=== PATIENT | male | born 1960 | race Caucasian/White ===

== ENCOUNTER → 2017-04-29 | Outpatient (CLI) | payer OTHER ==
[~2017-04-29] MED LIST: GADOBUTROL 10 ML VIAL IVP ONE
== END ==
LOC: FIMAGING 15:48
PROVIDERS: ATTEND Physician Assistant Medical
DX: E71.5 Peroxisomal disorders (principal)
CPT/HCPCS: A9585

== ENCOUNTER 2017-08-27 09:47 | Emergency (ER) | payer OTHER ==
[2017-08-27] MEDS ORDERED: OXYCODONE/APAP 5/325 TAB PO ONE (10:12)
--- NOTE | 2017-08-27 10:13 | EDPHY ---
H & P Time Seen by Provider: 08/27/17 10:00 HPI/ROS: CHIEF COMPLAINT: Pain at abrasion sites HISTORY OF PRESENT ILLNESS: 56-year-old man fell 10 days ago at [employer] with abrasions on both knees and both feet. Said he did not hit very hard, has normal range of motion of his joints, does not think he broke anything. He really just scraped his skin up. His has been doing dressings but brought him in today for pain control. No surrounding redness or pus, no fever or chills. No other injuries. REVIEW OF SYSTEMS: Negative PAST MEDICAL HISTORY: Adrenal myoneuropathy and Wale's Social history: Nonsmoker General Appearance: Alert and conversant, cooperative. Good range of motion of both knees ankles and feet. He has abrasions on both knees with granulation tissue. There abrasions on the dorsum of both great 2nd and middle toes not involving the nails and not circumferential. All have granulation tissue. 1-2 mm rim of erythema but no lymphangitis and no surrounding tenderness or fluctuance. No pus or drainage. Emergency Department course/MDM: Patient has evidence of painful healing abrasions but does not have clinical evidence of fracture or cellulitis or sepsis. He has taken Percocet before with good control of pain and tolerated it well. Smoking Status: Never smoked Constitutional: Initial Vital Signs Temperature (C) 36.7 C 08/27/17 09:54 Heart Rate 78 08/27/17 09:54 Respiratory Rate 16 08/27/17 09:54 Blood Pressure 120/72 08/27/17 09:54 O2 Sat (%) 97 08/27/17 09:54 O2 Delivery Mode Room Air Allergies/Adverse Reactions: morphine [Morphine] Allergy (Mild, Verified 12/11/15 10:18) Hives Home Medications: Medication Instructions Recorded Hydrocortisone [Cortef] 5 mg PO DAILY16 01/28/12 Hydrocortisone [Cortef] 15 mg PO DAILY 01/28/12 Ondansetron Odt [Zofran Odt 4 mg 4 mg PO Q4 PRN #6 tab 12/11/15 (*)] Testosterone 100mg/ml IM inj (*) 12/11/15 oxyCODONE/APAP 5/325 [Percocet] 1 tab PO Q4-6PRN PRN #11 tab 08/27/17 MDM/Departure - MDM Medications Given: Discontinued Medications Oxycodone/Acetaminophen (Percocet 5/325) 1 tab PO EDNOW ONE Stop: 08/27/17 10:13 Last Admin: 08/27/17 10:22 Dose: 1 tab - Depart Disposition: Home, Routine, Self-Care Clinical Impression: Abrasion of knee, bilateral Toe abrasion Qualifiers: Encounter type: initial encounter Laterality: unspecified laterality Qualified Code(s): S90.416A - Abrasion, unspecified lesser toe(s), initial encounter Condition: Good Instructions: Abrasion (ED) Prescriptions: oxyCODONE/APAP 5/325 [Percocet] 1 tab PO Q4-6PRN PRN #11 tab PRN Reason: Pain Referrals: Clark Valencia MD [Primary Care Provider] - As per Instructions
[2017-08-27 11:20] VITALS: BP 123/77
== END 2017-08-27 11:20 | disposition home or self-care (01) ==
DX: S80.211A Abrasion, right knee, initial encounter (principal); S80.212A Abrasion, left knee, initial encounter; S90.411A Abrasion, right great toe, initial encounter; S90.412A Abrasion, left great toe, initial encounter; S90.414A Abrasion, right lesser toe(s), initial encounter; S90.415A Abrasion, left lesser toe(s), initial encounter; X58.XXXA Exposure to other specified factors, initial encounter; Y99.8 Other external cause status